=== PATIENT | female | born 1970 | race Caucasian/White ===

== ENCOUNTER 2019-03-17 10:30 | Outpatient (RCR) | payer BC, SELFPAY ==
[2019-02-03 14:06] VITALS: BMI 26.2
[2019-02-03 14:07] VITALS: BMI 26.2
== END 2019-05-04 23:59 | disposition home or self-care (01) ==
LOC: ANHDMC 10:30
PROVIDERS: Visit Provider Internal Medicine
DX: E11.65 Type 2 diabetes mellitus with hyperglycemia (principal); Z71.89 Other specified counseling; Z71.3 Dietary counseling and surveillance
CPT/HCPCS: 97802; G0108

== ENCOUNTER 2019-05-05 08:52 | Outpatient (RCR) | payer BC, SELFPAY | END 2019-08-03 23:59 | disposition home or self-care (01) | LOC: ANHDMC 08:52 | PROVIDERS: PCP Family Medicine Adolescent Medicine; Visit Provider Internal Medicine | DX: E11.65 Type 2 diabetes mellitus with hyperglycemia (principal); Z71.89 Other specified counseling | CPT/HCPCS: G0108 ==

== ENCOUNTER 2019-08-04 08:50 | Outpatient (RCR) | payer BC, SELFPAY | END 2019-11-02 23:59 | disposition home or self-care (01) | LOC: ANHDMC 08:50 | PROVIDERS: PCP Family Medicine Adolescent Medicine; Visit Provider Internal Medicine | DX: E11.65 Type 2 diabetes mellitus with hyperglycemia (principal); Z71.89 Other specified counseling | CPT/HCPCS: G0108 ==

== ENCOUNTER 2021-05-09 07:21 | Outpatient (CLI) | payer BC, SELFPAY ==
--- NOTE | ~2021-05-09 | MM_ITS ---
EXAMINATION: MM screening hang BI w rima HISTORY: Screening mammogram TECHNIQUE: Craniocaudal and mediolateral oblique 3-D tomosynthesis images were obtained and synthetic 2-D images were generated. CAD analysis was submitted and interpreted. COMPARISON: No prior mammogram is available for comparison at this institution. BREAST PARENCHYMAL COMPOSITION: There are scattered areas of fibroglandular density. FINDINGS: Benign-appearing right axillary tail lymph node. There is no evidence of suspicious mass, c alcification, or architectural distortion to suggest malignancy in either breast. There has been no s uspicious interval change. IMPRESSION: 1. No mammographic evidence of malignancy. 2. Recommend routine screening mammography in one year. BI-RADS Category 2: Benign finding(s). 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
== END 2021-05-09 07:22 | disposition home or self-care (01) ==
LOC: ANHIMG 07:23
PROVIDERS: PCP Family Medicine; Visit Provider Family Medicine
DX: Z12.31 Encounter for screening mammogram for malignant neoplasm of breast (principal)
CPT/HCPCS: 77063; 77067

== ENCOUNTER → 2021-08-29 09:47 | Outpatient (CLI) | payer BC, SELFPAY ==
--- NOTE | ~2021-08-29 | XR_ITS ---
XR shoulder LT min 2V 08/29/2021 11:32 Indication: Left shoulder pain Procedure: 4 views left shoulder Comparison: No prior studies for comparison. Findings: There is mild osteoarthritis of the acromioclavicular joint. No acute fracture, subluxation or dislocation. No significant soft tissue abnormality. No foreign bodies. Impression: 1: Mild osteoarthritis of the acromioclavicular joint. Reviewed, dictated and finalized at location A. Impression: 1: Mild osteoarthritis of the acromioclavicular joint.
--- NOTE | ~2021-08-29 | XR_ITS ---
XR_[id number]_CR DATE: 08/29/2021 11:32 INDICATION: Neck pain TECHNIQUE: AP, open-mouth, lateral, swimmer views COMPARISON: None FINDINGS: C1 and C2 are normally aligned and the odontoid process is intact. There is moderate degenerative disc disease at C5-6 and C6-7. No fracture or dislocation or locked facet or prevertebral soft tissue swelling is detected.. IMPRESSION: Moderate degenerative disc disease at C5-6 and C6-7 Reviewed, dictated and finalized at Location [facility]. Reviewed, dictated and finalized at location A.
== END ==
PROVIDERS: PCP Family Medicine; Visit Provider Family Medicine
DX: M25.512 Pain in left shoulder (principal); M50.322 Other cervical disc degeneration at C5-C6 level; M19.012 Primary osteoarthritis, left shoulder
CPT/HCPCS: 72040; 73030

== ENCOUNTER → 2023-01-23 15:44 | Outpatient (CLI) | payer BC, SELFPAY ==
--- NOTE | ~2023-01-23 | MM_ITS ---
EXAMINATION: MM screening hang BI w rima HISTORY: Screening mammogram TECHNIQUE: Craniocaudal and mediolateral oblique 3-D tomosynthesis images were obtained and synthetic 2-D images were generated. CAD analysis was submitted and interpreted. COMPARISON: May 09, 2021 bilateral screening mammogram BREAST PARENCHYMAL COMPOSITION: There are scattered areas of fibroglandular density. FINDINGS: There is a new circumscribed low-density 7 mm opacity situated anteriorly in the mid inner left breast (craniocaudal Tomosynthesis image 35/63; MLO Tomosynthesis image 40/73). Diagnostic left mammogram and left breast ultrasound examination are recommended. No other significant new or developing density or suspicious mass, architectural distortion, malignan t calcification, skin thickening or retraction is noted. Bilateral benign calcifications are again pr esent. IMPRESSION: 1. New circumscribed 7 mm low-density opacity in the anterior mid inner left breast 2. Diagnostic left mammogram and left breast ultrasound examination are recommended. BI-RADS Category 0: Incomplete; need additional imaging evaluation Reviewed, dictated and finalized at location B. [facility] NURSE STAFF IMPRESSION: 1. New circumscribed 7 mm low-density opacity in the anterior mid inner left br east 2. Diagnostic left mammogram and left breast ultrasound examination are recomme nded. BI-RADS Category 0: Incomplete; need additional imaging evaluation
== END ==
PROVIDERS: PCP Physician Assistant; Visit Provider Physician Assistant
DX: Z12.31 Encounter for screening mammogram for malignant neoplasm of breast (principal); R92.8 Other abnormal and inconclusive findings on diagnostic imaging of breast
CPT/HCPCS: 77063; 77067

== ENCOUNTER → 2023-02-17 08:38 | Outpatient (CLI) | payer BC, SELFPAY ==
--- NOTE | ~2023-02-17 | MMUS_ITS ---
EXAMINATION: MM diagnostic hang LT w rima, US breast LT limited HISTORY: Left breast mass on screening mammogram TECHNIQUE: Additional 3-D tomosynthesis images of the left breast were performed and synthetic 2-D im ages were generated. CAD analysis was submitted and interpreted. High resolution limited left breast ultrasound was performed. COMPARISON: 01/23/2023, 05/09/2021 FINDINGS: MAMMOGRAPHIC FINDINGS: There is an 8 mm round, circumscribed, low density mass in the anterior/middle third of the upper inn er breast at the 11:00 location, 3.5 cm from the nipple. No suspicious calcification or architectural distortion are identified. ULTRASOUND: There is a 6 mm cyst at the 11:00 location, 5 cm from the nipple corresponding to the mammographic fi nding in question. IMPRESSION: 1. No mammographic or sonographic evidence of malignancy. 2. Recommend routine screening mammography in one year. BI-RADS Category 2: Benign finding(s). 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 No mammographic or sonographic evidence of malignancy. 2. Recommend routine screening mammography in one year. BI-RADS Category 2: Benign finding(s).
== END ==
PROVIDERS: PCP Physician Assistant; Visit Provider Physician Assistant
DX: R92.8 Other abnormal and inconclusive findings on diagnostic imaging of breast (principal)
CPT/HCPCS: 76642; 77061; 77065; G0279